=== PATIENT | female | born 1995 | race Caucasian/White ===

== ENCOUNTER 2021-01-10 11:22 | Emergency (ER) | payer OTHER ==
[2021-01-10 11:43] VITALS: BMI 37.3
[2021-01-10] MEDS ORDERED: SODIUM CHLORIDE 1,000 ML IV STA (12:21)
[2021-01-10] MEDS ORDERED: METOCLOPRAMIDE HCL INJECTION 10 MG/2 ML VIAL IVPB ONE (12:21)
[2021-01-10 13:44] LABS: BASO % 0.4 % (0-2.0); HEMATOCRIT 39.7 % (32.4-45.2); HEMOGLOBIN 13.2 GM/dL (10.7-15.3); LYMPH % 16.6 % (8-40); MCH 28.2 pg (25.7-33.7); MCHC 33.4 g/dl (32.0-36.0); MEAN CELL VOLUME 84.6 fl (80-96); MEAN PLT VOLUME 9.2 fl (7.5-11.1); MONO % 5.8 % (3.8-10.2); NEUT % 77.2 % (42.8-82.8); PLATELET COUNT 240 10^3/uL (134-434); RBC 4.69 M/mm3 (3.60-5.2); RDW 13.5 % (11.6-15.6); WHITE BLOOD COUNT 10.5 K/mm3 (4.0-10.0)
[2021-01-10 13:51] LABS: EPI CELLS >36 /uL (0-25.1); HYALINE CASTS 11 /uL (0-3.1); PH,URINE 5.5 (5.0-8.0); URINE APPEARANCE CLOUDY; URINE BACTERIA 872 /uL (0-1359); URINE BILIRUBIN 2+ (NEGATIVE); URINE COLOR DK YELLOW; URINE GLUCOSE (UA) NEGATIVE (NEGATIVE); URINE KETONE 4+ (NEGATIVE); URINE LEUK ESTERASE TRACE (NEGATIVE); URINE NITRITE NEGATIVE (NEGATIVE); URINE PROTEIN 2+ (NEGATIVE); URINE WBC 49 /uL (0-25.8)
[2021-01-10 14:02] LABS: ALBUMIN 3.4 g/dl (3.4-5.0); BLOOD UREA NITROGEN 12.6 mg/dL (7-18); CALCIUM 8.8 mg/dL (8.5-10.1)
[2021-01-10 14:03] LABS: URINE RBC 33.1 /uL (0-23.9)
[2021-01-10 14:05] LABS: CREATININE 0.6 mg/dL (0.55-1.3)
[2021-01-10 14:06] LABS: BILIRUBIN,TOTAL 0.6 mg/dL (0.2-1)
[2021-01-10 14:07] LABS: TOT PROT 7.4 g/dl (6.4-8.2)
[2021-01-10 14:52] VITALS: BP 124/79; PULSE 86; TEMP 98.3
[2021-01-10 16:52] LABS: HIV INTERPRETATION NEGATIVE (NEGATIVE)
== END 2021-01-10 14:51 | disposition home or self-care (01) ==
LOC: JER 11:22
PROC: 3E033GC Introduction of Other Therapeutic Substance into Peripheral Vein, Percutaneous Approach (ICD-10-PCS; principal; 2021-01-10)
PROC: 3E0337Z Introduction of Electrolytic and Water Balance Substance into Peripheral Vein, Percutaneous Approach (ICD-10-PCS; 2021-01-10)
DX: O21.1 Hyperemesis gravidarum with metabolic disturbance (principal); Z3A.01 Less than 8 weeks gestation of pregnancy
CPT/HCPCS: 36415; 80053; 81003; 83690; 85025; 87086; 87389; 99284-25

== ENCOUNTER 2021-08-05 07:20 | Inpatient (IN) | payer OTHER ==
[2021-08-05 08:24] VITALS: BMI 32.1
[2021-08-05] MEDS ORDERED: CITRIC ACID/SODIUM CITRATE 30 ML UNIT-DOSE CUP PO ONE ×2 (09:50→15:09)
[2021-08-05] MEDS ORDERED: ELECTROLYTE-148 SOLN 500 ML IV SCH ×2 (09:50→10:20)
[2021-08-05] MEDS ORDERED: morphine SULFATE/PF 1 MG/2 ML (2cc Syringe - QUVA) ONE (13:43)
[2021-08-05] MEDS ORDERED: ceFAZolin SODIUM 1 GM VIAL ONE (13:58)
[2021-08-05] MEDS ORDERED: ACETAMINOPHEN 325 MG TABLET (FP) PO PRN ×2 (13:59→15:10)
[2021-08-05] MEDS ORDERED: IBUPROFEN 600 MG TABLET (FP) PO PRN ×2 (13:59→15:10)
[2021-08-05] MEDS ORDERED: ONDANSETRON 4 MG/2 ML VIAL IVPUSH PRN (13:59)
[2021-08-05] MEDS ORDERED: OXYTOCIN 20 UNITS in 0.9% NS 20 UNIT/1,000 ML INFUS.BAG IV ONE (14:19)
[2021-08-05] MEDS ORDERED: OXYTOCIN 10 UNITS/ML VIAL ONE (14:30)
[2021-08-05] MEDS ORDERED: KETOROLAC TROMETHAMINE 30 MG/1 ML VIAL ONE (14:30)
[2021-08-05] MEDS: OXYTOCIN 20 UNITS in 0.9% NS 20 UNIT/1,000 ML INFUS.BAG IV SCH ×2 (14:45→21:23)
[2021-08-05] MEDS ORDERED: ELECTROLYTE-148 SOLN 500 ML IV ONE (15:09)
[2021-08-05] MEDS ORDERED: IBUPROFEN 800 MG/8 ML IJ IVPB PRN (15:10)
[2021-08-05] MEDS ORDERED: METHYLERGONOVINE MALEATE 0.2 MG/1 ML AMP IM PRN (15:10)
[2021-08-05] MEDS ORDERED: SENNOSIDES/DOCUSATE COMBO (SENNA PLUS) TABLET (UD) PO PRN (15:10)
[2021-08-05] MEDS ORDERED: ELECTROLYTE-148 SOLN 1,000 ML IV SCH (15:15)
[2021-08-06] MEDS: SIMETHICONE 80 MG TAB.CHEW (FP) PO PRN ×5 (06:55→23:12)
[2021-08-06] MEDS: oxyCODONE HCL 5 MG TABLET PO PRN ×5 (06:55→23:12)
[2021-08-06 08:11] LABS: BASO % 0.6 % (0-2.0); HEMOGLOBIN 11.7 GM/dL (10.7-15.3); LYMPH % 22.6 % (8-40); MCH 28.3 pg (25.7-33.7); MCHC 33.4 g/dl (32.0-36.0); MEAN CELL VOLUME 84.6 fl (80-96); MEAN PLT VOLUME 9.1 fl (7.5-11.1); MONO % 7.4 % (3.8-10.2); NEUT % 68.4 % (42.8-82.8); PLATELET COUNT 256 10^3/uL (134-434); RBC 4.13 M/mm3 (3.60-5.2); RDW 13.7 % (11.6-15.6); WHITE BLOOD COUNT 8.8 K/mm3 (4.0-10.0)
[2021-08-06] MEDS ORDERED: DIPHTH,PERTUSS(ACELL),TET 0.5 ML DISP.SYRIN IM ONE (10:00)
[2021-08-06] MEDS ORDERED: FLU VACC QS2021-22(6MOS UP)/PF 60 MCG/0.5 ML SYRINGE IM ONE (10:00)
[2021-08-06] MEDS: PRENATAL VITAMINS W/ FOLIC ACID TABLET (FP) PO SCH (11:30)
[2021-08-06] MEDS ORDERED: BISACODYL 10 MG SUPP.RECT RC PRN (15:10)
[2021-08-06] MEDS: OXYTOCIN 20 UNITS in 0.9% NS 20 UNIT/1,000 ML INFUS.BAG IV SCH (15:15)
[2021-08-06 23:32] VITALS: TEMP 98
[2021-08-07] MEDS: SIMETHICONE 80 MG TAB.CHEW (FP) PO PRN (05:11)
[2021-08-07] MEDS: oxyCODONE HCL 5 MG TABLET PO PRN ×2 (05:11→11:34)
[2021-08-07 08:57] VITALS: BP 133/75; PULSE 65
[2021-08-07] MEDS: PRENATAL VITAMINS W/ FOLIC ACID TABLET (FP) PO SCH (09:29)
== END 2021-08-07 14:00 | disposition home or self-care (01) | DRG 540 ==
LOC: JLDR 07:20 → J3W 16:25
PROVIDERS: ADMIT Obstetrics & Gynecology; ATTEND Obstetrics & Gynecology
PROC: 10D00Z1 Extraction of Products of Conception, Low, Open Approach (ICD-10-PCS; principal; 2021-08-05)
DX: O36.5930 Maternal care for other known or suspected poor fetal growth, third trimester, not applicable or unspecified (principal); O34.211 Maternal care for low transverse scar from previous cesarean delivery; Z3A.38 38 weeks gestation of pregnancy; Z37.0 Single live birth
CPT/HCPCS: 36415; 85025; 88307-TC; 90686; 90715; G0008